=== PATIENT | female | born 1955 | race Caucasian/White ===

== ENCOUNTER 2016-10-11 08:40 | Emergency (ER) | payer OTHER ==
[2016-10-11 08:47] VITALS: BP 139/86; PULSE 80; TEMP 98; BMI 23.2
--- NOTE | 2016-10-11 09:33 | PDOC ---
History of Present Illness - General Chief Complaint: Rash Stated Complaint: Rash/shingles Time Seen by Provider: 10/11/16 09:02 History Source: Patient Exam Limitations: No Limitations - History of Present Illness Initial Comments: 10/11/16 09:16 Patient with onset of painful rash to her right flank/waist that started 5 days ago. Was not itchy but painful and what provoked her coming to emergency department today was pain in her right groin. Patient states was mildly feverish and achy. No URI symptoms, no fevers, no headache or other neurologic complaints. Timing/Duration: reports: changing over time, getting worse Severity: Yes: moderate Location: reports: torso Respiratory Risk Factors: reports: no cause identified Modifying Factors: improves with: calamine lotion, prednisone Past History - Travel Traveled outside of the country in the last 30 days: No Close contact w/someone who was outside of country & ill: No - Past Medical History Allergies/Adverse Reactions: Allergies Allergy/AdvReac Type Severity Reaction Status Date / Time No Known Allergies Allergy Verified 10/11/16 08:47 Home Medications: Ambulatory Orders Amlodipine Besylate/Benazepril [Lotrel 10-20 mg Capsule] 1 each PO DAILY Aspirin [ASA] 81 mg PO DAILY 01/13/12 Vitamin B Complex 1 each PO DAILY 08/22/12 Atorvastatin Ca [Lipitor] 20 mg PO HS 10/11/16 Oxycodone HCl/Acetaminophen [Percocet 5-325 mg Tablet -] 1 - 2 tab PO Q4H PRN # 10 tablet MDD 6 10/11/16 Valacyclovir HCl [Valtrex] 1,000 mg PO TID #21 tablet 10/11/16 Anemia: No Asthma: No Cancer: No Cardiac Disorders: Yes (PALPITATION) CVA: No COPD: No CHF: No Dementia: No Diabetes: Yes (pre-diabetes) GI Disorders: No Disorders: No HTN: Yes Hypercholesterolemia: Yes Liver Disease: No Seizures: No Thyroid Disease: No - Surgical History Abdominal Surgery: No Appendectomy: No Cardiac Surgery: No Cholecystectomy: No Lung Surgery: No Neurologic Surgery: No Orthopedic Surgery: No - Immunization History Immunization Up to Date: No - Psycho/Social/Smoking Cessation Hx Anxiety: No Suicidal Ideation: No Smoking Status: No Smoking History: Never smoked Have you smoked in the past 12 months: No Number of Cigarettes Smoked Daily: 0 Information on smoking cessation initiated: No Hx Alcohol Use: No Drug/Substance Use Hx: No Substance Use Type: None Review of Systems - Review of Systems Able to Perform ROS?: Yes Is the patient limited [place] proficient: Yes Constitutional: Yes: Symptoms Reported, See HPI, Malaise. No: Chills, Fever HEENTM: Yes: See HPI. No: Symptoms Reported Respiratory: Yes: See HPI. No: Symptoms reported, Cough Integumentary: Yes: Symptoms Reported, Lesions (to right flank only), Pruritus, Rash *Physical Exam - Vital Signs Last Vital Signs Temp Pulse Resp BP Pulse Ox 98 F 80 18 139/86 98 10/11/16 08:46 10/11/16 08:46 10/11/16 08:46 10/11/16 08:46 10/11/16 08:46 - Physical Exam General Appearance: Yes: Nourished, Appropriately Dressed, Apparent Distress, Mild Distress, Moderate Distress HEENT: positive: MILA, Normal ENT Inspection, Normal Voice, Symmetrical, TMs Normal, Pharynx Normal Neck: positive: Supple. negative: Lymphadenopathy (R), Lymphadenopathy (L) Respiratory/Chest: positive: Lungs Clear Extremity: positive: Normal Capillary Refill, Normal Inspection, Normal Range of Motion, Tender Integumentary: positive: Dry, Warm, Pale, Rash (grouped vesicular type lesions with some scabbed roofs approximately 5 cm x 3 cm patch to right flank/ waistline. Is tender to touch, and consistent with appearance of shingles. 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, Fully Oriented, Alert, Normal Mood/ Affect, Normal Response, Motor Strength 5/5 Progress Note - Progress Note Progress Note: Shingles, will treat with Valtrex and give #10 tablets of Percocet for pain relief *DC/Admit/Observation/Transfer Diagnosis at time of Disposition: Shingles rash Qualifiers: Herpes zoster complications: without complications Qualified Code(s): B02.9 - Zoster without complications - Discharge Dispostion Disposition: HOME Condition at time of disposition: Stable Admit: No - Prescriptions Prescriptions: Oxycodone HCl/Acetaminophen [Percocet 5-325 mg Tablet -] 1 - 2 tab PO Q4H PRN # 10 tablet MDD 6 PRN Reason: Pain Valacyclovir HCl [Valtrex] 1,000 mg PO TID #21 tablet - Patient Instructions Printed Discharge Instructions: DI for Shingles Additional Instructions: Rest, keep cool and dry- avoid strenuous activity or hot /humid environments Less hot showers, no abrasive soaps May use heavy creams like Eucerin or Cetaphil to keep skin moist May apply Aveeno, calamine lotion, [id number] hydrocortisone creams as needed for symptoms May use Benadryl at night for antihistamine, Zyrtec/ Kyra or Claritin for daytime antihistamine use to help with itching May use [id number] hydrocortisone cream on all areas except face Followup with PMD in one week for reevaluation Valtrex 1 g tablet every 8 hours for one week May use one or 2 Percocet tablets for severe pain, understanding will make dizzy and sleepy otherwise ibuprofen may be strong enough for pain relief
== END 2016-10-11 09:39 | disposition home or self-care (01) ==
LOC: JERFT 08:40
DX: B02.9 Zoster without complications (principal); I10 Essential (primary) hypertension; R73.03 Prediabetes; E78.00 Pure hypercholesterolemia, unspecified
CPT/HCPCS: 99281-25

== ENCOUNTER 2017-06-14 16:41 | Emergency (ER) | payer OTHER ==
[2017-06-14 17:04] VITALS: BP 143/86; PULSE 87; TEMP 98.9; BMI 32.6
--- NOTE | 2017-06-14 18:19 | PDOC ---
History of Present Illness - General Chief Complaint: Pain, Acute Stated Complaint: PCP SENT Time Seen by Provider: 06/14/17 17:54 History Source: Patient Exam Limitations: No Limitations - History of Present Illness Travel History: No Initial Comments: 06/14/17 18:35 Patient was seen by provider that's covering for her PCP nurse practitioner Dae today with complaints of abdominal pain. Was sent to the emergency department for evaluation of abdominal pain, with a potential for ultrasound of gallbladder. Patient denies fever, denies nausea vomiting diarrhea or constipation. Has never had a problem with gallbladder. However reports dysuria , frequency and burning with urination. No vaginal drainage Timing/Duration: reports: getting worse Quality: reports: mild, moderate, sharpness, stabbing Abdominal Pain Onset Location: reports: suprapubic. denies: generalized abdomen Pain Radiation: reports: no radiation Aggravating Factors: improves with: None Past History - Travel Traveled outside of the country in the last 30 days: No Close contact w/someone who was outside of country & ill: No - Past Medical History Allergies/Adverse Reactions: Allergies Allergy/AdvReac Type Severity Reaction Status Date / Time No Known Allergies Allergy Verified 06/14/17 17:01 Home Medications: Ambulatory Orders Amlodipine Besylate/Benazepril [Lotrel 10-20 mg Capsule] 1 each PO DAILY Aspirin [ASA] 81 mg PO DAILY 01/13/12 Vitamin B Complex 1 each PO DAILY 08/22/12 Atorvastatin Ca [Lipitor] 20 mg PO HS 10/11/16 Oxycodone HCl/Acetaminophen [Percocet 5-325 mg Tablet -] 1 - 2 tab PO Q4H PRN # 10 tablet MDD 6 10/11/16 Cephalexin Monohydrate [Keflex -] 500 mg PO Q8H #21 capsule 06/14/17 Anemia: No Asthma: No Cancer: No Cardiac Disorders: Yes (PALPITATION) CVA: No COPD: No CHF: No DVT: No Dementia: No Diabetes: Yes (pre-diabetes) GI Disorders: No Disorders: No HTN: Yes Hypercholesterolemia: Yes Liver Disease: No Seizures: No Thyroid Disease: No - Surgical History Abdominal Surgery: No Appendectomy: No Cardiac Surgery: No Cholecystectomy: No Lung Surgery: No Neurologic Surgery: No Orthopedic Surgery: No - Immunization History Immunization Up to Date: No - Suicide/Smoking/Psychosocial Hx Smoking Status: No Smoking History: Never smoked Have you smoked in the past 12 months: No Number of Cigarettes Smoked Daily: 0 Information on smoking cessation initiated: No Hx Alcohol Use: No Drug/Substance Use Hx: No Substance Use Type: None Abd/GI Specific PMHX - Complaint Specific PMHX Gall Bladder Disease: No GERD: No Review of Systems - Review of Systems Able to Perform ROS?: Yes Is the patient limited [place]ian proficient: Yes Constitutional: Yes: Symptoms Reported, See HPI, Malaise HEENTM: Yes: See HPI. No: Symptoms Reported Respiratory: Yes: See HPI. No: Symptoms reported Musculoskeletal: No: Symptoms Reported Integumentary: No: Symptoms Reported Neurological: No: Symptoms reported All Other Systems: Reviewed and Negative *Physical Exam - Vital Signs Last Vital Signs Temp Pulse Resp BP Pulse Ox 98.9 F 87 16 143/86 98 06/14/17 17:01 06/14/17 17:01 06/14/17 17:01 06/14/17 17:01 06/14/17 17:01 - Physical Exam General Appearance: Yes: Nourished, Appropriately Dressed, Mild Distress. No: Apparent Distress HEENT: positive: MILA, Normal ENT Inspection, TMs Normal, Pharynx Normal Neck: positive: Supple. negative: Tender Respiratory/Chest: positive: Lungs Clear, Normal Breath Sounds Gastrointestinal/Abdominal: positive: Tender (patient with mild suprapubic tenderness, no rebound or guarding, no hepatosplenomegaly), Soft. 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 We'll treat with Keflex *DC/Admit/Observation/Transfer Diagnosis at time of Disposition: Urinary tract infection Qualifiers: Urinary tract infection type: acute cystitis Hematuria presence: with hematuria Qualified Code(s): N30.01 - Acute cystitis with hematuria - Discharge Dispostion Disposition: HOME Condition at time of disposition: Stable Admit: No - Prescriptions Prescriptions: Cephalexin Monohydrate [Keflex -] 500 mg PO Q8H #21 capsule - Referrals Referrals: Peter Slater [Primary Care Provider] - - Patient Instructions Printed Discharge Instructions: DI for Urinary Tract Infection (UTI) Additional Instructions: Rest, drink lots of fluids: Teas, water, soups Avoid contact with others until fevers and symptoms resolved Lots of handwashing and good hygiene Continue [id number] medications for symptomatic relief Tylenol or Motrin for fever and pain Continue all of antibiotics until completed Followup with private physician in one week for repeat urinalysis/reevaluation Return to emergency department for worsened symptoms, fevers, dehydration - Post Discharge Activity
[2017-06-14 18:45] LABS: URINE APPEARANCE CLOUDY; URINE BILIRUBIN NEGATIVE (NEGATIVE); URINE BLOOD 1+ (NEGATIVE); URINE COLOR LTYELLOW; URINE GLUCOSE (UA) NEGATIVE (NEGATIVE); URINE KETONE NEGATIVE (NEGATIVE); URINE LEUK ESTERASE NEGATIVE (NEGATIVE); URINE NITRITE NEGATIVE (NEGATIVE); URINE PROTEIN NEGATIVE (NEGATIVE); URINE UROBILINOGEN NEGATIVE mg/dL (0.2-1.0)
[2017-06-14 19:04] LABS: URINE MUCUS RARE; URINE RBC 2 /hpf (0-3); URINE WBC 5 /hpf (3-5)
[2017-06-14] MEDS ORDERED: CEPHALEXIN MONOHYDRATE 500 MG CAPSULE (UD) ONE (19:37)
[2017-06-14 23:01] LABS: URINE LEUK ESTERASE Negative (NEGATIVE)
== END 2017-06-14 19:44 | disposition home or self-care (01) ==
LOC: JERFT 16:41
DX: N30.01 Acute cystitis with hematuria (principal); I10 Essential (primary) hypertension; E78.00 Pure hypercholesterolemia, unspecified; R73.03 Prediabetes
CPT/HCPCS: 81003; 81015; 87086; 99281-25